=== PATIENT | female | born 1975 | race Caucasian/White ===

== ENCOUNTER 2017-09-29 17:14 | Emergency (ER) | payer OTHER ==
[~2017-09-29] VITALS: Ht 160 cm; Wt 62.6 kg
[~2017-09-29 17:14] MED LIST: BACTRIM DS 8001 TA1 PO; CEFADROXIL500 M1 PO; ESCITALOPRAM OX20 MG PO; KEFLEX500 MG PO; LOESTRIN FE; MOTRIN800 MG PO; NKHM; PERCOCET 325 MG1 TA2 PO; PNV-SELECT1 TAB PO; PRENATAL1 TA1 PO; TRAMADOL HCL50 MG PO; ULTRAM50 MG PO; ZITHROMAX Z PA250 MG PO
[2017-09-29] MEDS ORDERED: Bactroban Oint22 GM T (17:21)
[2017-09-29] MEDS ORDERED: CLINDAMYCIN HC300 MG PO (18:32)
[2017-09-29] MEDS ORDERED: SEPTDS PO (18:32)
== END 2017-09-29 18:42 | disposition home or self-care (01) ==
LOC: ED 17:14
DX: L02.01 Cutaneous abscess of face (principal); L72.8 Other follicular cysts of the skin and subcutaneous tissue; M32.9 Systemic lupus erythematosus, unspecified; Z98.890 Other specified postprocedural states; Z90.49 Acquired absence of other specified parts of digestive tract; Z79.899 Other long term (current) drug therapy

== ENCOUNTER 2020-06-29 13:10 | Emergency (ER) | payer OTHER ==
[~2020-06-29] VITALS: Ht 157.4 cm; Wt 66.7 kg
[~2020-06-29 13:10] MED LIST changes: +Bactroban Oint22 GM T; +CLINDAMYCIN HC300 MG PO; +SEPTDS PO
[2020-06-29 14:00] LABS: BASO # 0.1 10*3/uL (0.0-0.1); BASO % 0.8 % (0.0-1.0); EOS % 0.5 % (1.0-4.0); HEMATOCRIT 39.6 % (37.0-47.0); LYMPH # 2.1 10*3/uL (1.3-4.4); LYMPH % 24.7 % (27.0-41.0); MEAN CELL VOLUME 90.4 fl (81.0-99.0); MEAN CORPUSCULAR HGB 30.4 pg (27.0-31.0); MEAN CORPUSCULAR HGB CONC 33.6 g/dl (33.0-37.0); MEAN PLATELET VOLUME 11.8 fl (9.6-12.3); MONO # 0.5 10*3/uL (0.1-1.0); MONO % 5.4 % (3.0-9.0); NEUT # 5.9 10*3/uL (2.3-7.9); NEUT % 68.2 % (47.0-73.0); PLATELET COUNT AUTOMATED 220 10*3/uL (130-400); RED BLOOD COUNT 4.38 10*6/uL (4.10-5.10); RED CELL DISTRI WIDTH 12.2 % (0-14.5); WHITE BLOOD COUNT 8.6 10*3/uL (4.8-10.8)
[2020-06-29 14:17] LABS: ALBUMIN 4.4 gm/dl (3.1-4.5); ALKALINE PHOSPHATASE 67 U/L (45-117); BUN 8 mg/dl (7-24); CHLORIDE 107 mmol/L (98-107); CREATININE 0.79 mg/dL (0.55-1.02); LIPASE 177 U/L (73-393); POTASSIUM 3.5 mmol/L (3.5-5.1); SGOT/AST 14 IU/L (3-35); SGPT/ALT 17 U/L (12-78); SODIUM 138 mmol/L (136-145); TOTAL PROTEIN 7.8 gm/dL (6.4-8.2)
[2020-06-29 14:32] LABS: BILIRUBIN Negative (Negative); BLOOD 3+ (Negative); CLARITY Clear (Clear); COLOR Orange (Yellow); GLUCOSE Negative (Negative); KETONE Negative (Negative); LEUKO ESTERASE 1+ (Negative); NITRITE Negative (Negative); SPECIFIC GRAVITY <= 1.005 (1.001-1.030)
[2020-06-29 14:38] LABS: BACTERIA 2+; EPITHELIAL CELLS 21-30; RBC TNTC rbc/hpf (0-2)
[2020-06-29] MEDS ORDERED: PEPCID20 MG PO (15:21)
[2020-06-29] MEDS ORDERED: PROTONIX40 MG PO (15:21)
== END 2020-06-29 15:31 | disposition home or self-care (01) ==
LOC: ED 13:10
PROVIDERS: Physician Assistant
DX: K29.70 Gastritis, unspecified, without bleeding (principal); Z90.49 Acquired absence of other specified parts of digestive tract; Z98.890 Other specified postprocedural states

== ENCOUNTER 2020-12-14 18:01 | Emergency (ER) | payer OTHER ==
[~2020-12-14] VITALS: Ht 157.4 cm; Wt 59.0 kg
[~2020-12-14 18:01] MED LIST changes: +PEPCID20 MG PO; +PROTONIX40 MG PO
== END 2020-12-14 23:36 | disposition home or self-care (01) ==
LOC: ED 18:01
DX: S60.221A Contusion of right hand, initial encounter (principal); F17.200 Nicotine dependence, unspecified, uncomplicated; Z88.1 Allergy status to other antibiotic agents; W22.8XXA Striking against or struck by other objects, initial encounter; Y93.89 Activity, other specified; Y92.89 Other specified places as the place of occurrence of the external cause; Y99.8 Other external cause status